=== PATIENT | female | born 1970 | race Caucasian/White ===

== ENCOUNTER 2017-07-18 20:06 | Emergency (ER) | payer MEDICAID ==
[2017-07-18] MEDS ORDERED: Bupivacaine 0.5% 30 ML SDV INFILT ONE (20:07)
[2017-07-18] MEDS ORDERED: Cephalexin 500 MG Cap PO ONE (20:44)
[2017-07-18] MEDS ORDERED: Diphtheria,Pertussis(Acell),Tetanus Vaccine 0.5 ML SDV IM ONE (20:45)
--- NOTE | 2017-07-18 20:49 | EDM.PDOC ---
ED HPI GENERAL MEDICAL PROBLEM - General Chief Complaint: General Stated Complaint: INFECTED FINGER RT HAND Time Seen by Provider: 07/18/17 20:06 Source of Information: Reports: Patient History Limitations: Reports: No Limitations - History of Present Illness INITIAL COMMENTS - FREE TEXT/NARRATIVE: 46 y.o.w.jeffery came to the ed with her mom due to swelling and pain at her r 5th finger for 4 days, getting worse. Pt denied trauma, no f/c/n/v or any other acute medical issues. Pt has LROM of left finger due to swelling and pain. BP 101/69 temp 36.4 pulse 72 RR 18 Pulse ox 99% on RA Onset Date: 07/14/17 Onset Time: 08:00 Duration: Getting Worse Location: Reports: Upper Extremity, Right Quality: Reports: Ache, Dull, Pressure, Throbbing Severity: Moderate Improves with: Reports: Rest Worsens with: Reports: Movement Context: Reports: Other (paronychia) Associated Symptoms: Reports: No Other Symptoms - Related Data Allergies Allergy/AdvReac Type Severity Reaction Status Date / Time Sulfa (Sulfonamide Allergy Rash Verified 07/18/17 20:18 Antibiotics) Home Meds: Home Meds Cephalexin [Keflex] 500 mg PO Q6HR #40 cap 07/18/17 [Rx] Ibuprofen 2 tab PO Q4H PRN 07/18/17 [History] Past Medical History - Past Health History Medical/Surgical History: Denies Medical/Surgical History Social & Family History - Tobacco Use Smoking Status *Q: Current Every Day Smoker Years of Tobacco use: 20 - Recreational Drug Use Recreational Drug Use: No ED ROS GENERAL - Review of Systems Review Of Systems: See Below Constitutional: Reports: No Symptoms HEENT: Reports: No Symptoms Respiratory: Reports: No Symptoms Cardiovascular: Reports: No Symptoms Endocrine: Reports: No Symptoms GI/Abdominal: Reports: No Symptoms : Reports: No Symptoms Musculoskeletal: Reports: No Symptoms Skin: Reports: Rash, Erythema (right 5th finger) Neurological: Reports: No Symptoms Psychiatric: Reports: No Symptoms Hematologic/Lymphatic: Reports: No Symptoms Immunologic: Reports: No Symptoms ED EXAM, GENERAL - Physical Exam Exam: See Below Exam Limited By: No Limitations General Appearance: Alert, WD/WN, Mild Distress Eye Exam: Bilateral Eye: Normal Inspection Ears: Normal External Exam Ear Exam: Bilateral Ear: Auricle Normal Nose: Normal Inspection, Normal Mucosa Throat/Mouth: Normal Inspection, Normal Lips Head: Atraumatic, Normocephalic Neck: Normal Inspection, Supple, Non-Tender Respiratory/Chest: No Respiratory Distress, Lungs Clear, Normal Breath Sounds Cardiovascular: Normal Peripheral Pulses, Regular Rate, Rhythm, No Edema, No Gallop Peripheral Pulses: 1+: Radial (R) GI/Abdominal: Normal Bowel Sounds (Female) Exam: Deferred Rectal (Female) Exam: Deferred Back Exam: Normal Inspection, Full Range of Motion Extremities: Limited Range of Motion (right 5th finger due to sweling) Neurological: Alert, Oriented, CN II-XII Intact, Normal Cognition, Normal Gait Psychiatric: Normal Affect, Normal Mood Skin Exam: Erythema (paronychia r 5th finger) Lymphatic: No Adenopathy ED GENERAL MEDICAL PROCEDURES - Additional/Other Procedure(s) Other (Free Text) Procedure(s): Procedure: 1) Digital block r 5th finger using 3 cc of Marcain 0.5% 2) elevated the skin over the nail and pus extruded 3) Gram stain and Cx with sensitivity were ordered. 4) Keflex 500 mg po was given (pt refused I.M) 5) TD immunization was applied. No complication Course - Vital Signs Text/Narrative:: 46 y.o.w.f came to the ed with her mom due to swelling and pain at her r 5th finger for 4 days, getting worse. Pt denied trauma, no f/c/n/v or any other acute medical issues. Pt has LROM of left finger due to swelling and pain. BP 101/69 temp 36.4 pulse 72 RR 18 Pulse ox 99% on RA PE: Paronychia R little finger Procedure: Please see note above Labs: Gram stain/Cx results are pending Impression: Paronychia r 5th finger Tx:Drainage, Abx Reexam: Pain ands swelling improved Plan: D/C with instructions Last Recorded V/S: Last Vital Signs Temp 36.5 C 07/18/17 20:15 Pulse 74 07/18/17 20:15 Resp 16 07/18/17 20:15 BP 101/69 07/18/17 20:15 Pulse Ox 99 07/18/17 20:15 - Orders/Labs/Meds Meds: Medications Discontinued Medications Generic Name Dose Route Start Last Admin Trade Name Freq PRN Reason Stop Dose Admin Bupivacaine HCl 3 ml 07/18/17 20:07 Marcaine 0.5% INFILT 07/18/17 20:08 .STK-MED ONE Cephalexin 500 mg 07/18/17 20:44 07/18/17 20:56 Keflex PO 07/18/17 20:45 500 mg ONETIME ONE Administration Diphtheria/Tetanus/Acell Pertussis 0.5 ml 07/18/17 20:45 07/18/17 20:56 Adacel IM 07/18/17 20:46 0.5 ml .ONCE ONE Administration Departure - Departure Time of Disposition: 23:00 Disposition: Home, Self-Care 01 Condition: Good Clinical Impression: Paronychia of finger of right hand - Discharge Information Prescriptions: Cephalexin [Keflex] 500 mg PO Q6HR #40 cap Referrals: Martínez Polanco MD [Primary Care Provider] - Forms: ED Department Discharge Additional Instructions: Please massage the right 5th finger towards the nail to extrude the pus, please take keflex as recommended, please f/u with your PMD, please come back to the ED if acutely worse.
== END 2017-07-18 21:45 | disposition home or self-care (01) ==
LOC: FB.ED 20:06
DX: L03.011 Cellulitis of right finger (principal); Z88.2 Allergy status to sulfonamides; F17.210 Nicotine dependence, cigarettes, uncomplicated; Z23 Encounter for immunization
CPT/HCPCS: 64450; 87070; 87077; 87186; 87205; 90471; 90715; 99283; A9270; 99217; 99224; 99225

== ENCOUNTER 2018-11-09 17:19 | Observation (INO) | payer MEDICAID ==
[2018-11-09] MEDS ORDERED: Sodium Chloride 0.9% 10 ML Syringe FLUSH PRN (17:56)
--- NOTE | 2018-11-09 18:12 | PCM.HP ---
H&P History of Present Illness - General Date of Service: 11/09/18 Admit Problem/Dx: Admission Diagnosis/Problem Admission Diagnosis/Problem Abdominal pain - History of Present Illness Initial Comments - Free Text/Narative: Clary Rodriguez is a 48 years old female with PMHx of Asthma who presents to hospital as direct admission from the clinic. Patient reports not feeling well for the last week with nausea. Today she has worsening abdominal pain, it's more generalized lower abdomen, constant, cramps like. Nothing makes it better or worse. Associated with fever, nausea and vomiting. She had BM this morning. She denies diarrhea or constipation. She denies dysuria, frequency or blood in her urine. She has history of Hysterectomy with Right oophorectomy 10 years ago. History of in 1995. She is a smoker. Drink alcohol occasionally. No illicit drugs use. VS in clinic were wnl. Labs done in clinic today showed WBC 10.8, Hgb 14.9, Platelets of 415. UA Positive for small amount of blood. 3-5 RBC. Trace protein , negative leukocytes esterase, and negative for bacteria. - Related Data Allergies/Adverse Reactions: Allergies Allergy/AdvReac Type Severity Reaction Status Date / Time Sulfa (Sulfonamide Allergy Rash Verified 11/09/18 17:56 Antibiotics) Home Medications: Home Meds Ibuprofen 400 mg PO Q4H PRN 07/18/17 [History] Albuterol [Ventolin HFA] 2 inh INH Q4H PRN 11/09/18 [History] Fluticasone Propionate [Flovent HFA 110 MCG] 2 inh INH Q4H PRN 11/09/18 [History ] Montelukast [Singulair] 10 mg PO BEDTIME 11/09/18 [History] Past Medical History - Past Health History Medical/Surgical History: Denies Medical/Surgical History Respiratory History: Reports: Asthma Musculoskeletal History: Reports: Back Pain, Chronic, Fibromyalgia, Other (See Below) Other Musculoskeletal History: States she has arthritis in her back, as well as scoliosis. - Past Surgical History HEENT Surgical History: Reports: Tonsillectomy Female Surgical History: Reports: Section, Hysterectomy H&P Review of Systems - Review of Systems: Review Of Systems: See Below General: Reports: Fever, Chills, Malaise, Fatigue HEENT: Reports: No Symptoms Pulmonary: Reports: No Symptoms Cardiovascular: Reports: No Symptoms Gastrointestinal: Reports: Abdominal Pain, Decreased Appetite, Nausea, Vomiting Genitourinary: Reports: No Symptoms Musculoskeletal: Reports: Back Pain Skin: Reports: No Symptoms Psychiatric: Reports: No Symptoms Neurological: Reports: Headache Hematologic/Lymphatic: Reports: No Symptoms Exam - Exam Exam: See Below - Exam General: Alert, Oriented HEENT: PERRLA, Conjunctiva Clear Neck: Supple Lungs: Clear to Auscultation, Normal Respiratory Effort Cardiovascular: Regular Rate, Regular Rhythm GI/Abdominal Exam: Normal Bowel Sounds, Soft, Tender, Mass Back Exam: Normal Inspection Extremities: Normal Inspection, Normal Range of Motion, Non-Tender, No Pedal Edema Skin: Warm Neuro Extensive - Mental Status: Alert, Oriented x3 Psychiatric: Alert, Normal Affect - Problem List (1) Abdominal pain SNOMED Code(s): 73154731 ICD Code: R10.9 - UNSPECIFIED ABDOMINAL PAIN Status: Acute Current Visit : Yes (2) Acute asthma SNOMED Code(s): 492116171 ICD Code: J45.909 - UNSPECIFIED ASTHMA, UNCOMPLICATED Status: Acute Current Visit: No (3) Dehydration SNOMED Code(s): 98304678 ICD Code: E86.0 - DEHYDRATION Status: Acute Current Visit: Yes Problem List Initiated/Reviewed/Updated: Yes Orders Last 24hrs: Active Orders 24 hr Category Date Time Status Patient Status [ADT] Routine ADT 11/09/18 17:56 Active Oxygen Therapy [RC] PRN Care 11/09/18 17:56 Active Up ad Apryl [RC] ASDIRECTED Care 11/09/18 17:56 Active VTE/DVT Education [RC] Per Unit Routine Care 11/09/18 17:56 Active Vital Signs [RC] Q4H Care 11/09/18 17:56 Active Nothing per Oral Now Diet [DIET] Diet 11/09/18 Dinner Active Abdomen Pelvis wo Cont [CT] Routine Exams 11/09/18 17:59 Ordered COMPREHENSIVE METABOLIC PN,CMP [CHEM] Routine Lab 11/09/18 17:56 Ordered Enoxaparin [Lovenox] Med 11/09/18 18:00 Ordered 40 mg SUBCUT Q24H Sodium Chloride 0.9% [Normal Saline] 1,000 ml Med 11/09/18 18:00 Ordered IV ASDIRECTED Sodium Chloride 0.9% [Saline Flush] Med 11/09/18 17:56 Ordered 10 ml FLUSH ASDIRECTED PRN Peripheral IV Insertion Adult [OM.PC] Routine Oth 11/09/18 17:56 Ordered Resuscitation Status Routine Resus Stat 11/09/18 17:56 Ordered Medication Orders Enoxaparin Sodium (Lovenox) 40 mg SUBCUT Q24H [facility] Sodium Chloride (Normal Saline) 1,000 mls @ 125 mls/hr IV ASDIRECTED [facility] Sodium Chloride (Saline Flush) 10 ml FLUSH ASDIRECTED PRN PRN Reason: Keep Vein Open Assessment/Plan Comment:: - Abdominal pain - Reviewed CBC and UA done earlier today in the clinic - Will do CMP - Will do abdominal CT scan - Start IV fluid NS - Pain management with prn pain medication - Antiemetic prn - Monitor vital sign
[2018-11-09] MEDS: Sodium Chloride 0.9% 1,000 ML IV SCH (18:31)
[2018-11-09] MEDS ORDERED: Iopamidol 755 Mg/ML 75 ML Bottle IV ONE (18:48)
[2018-11-09] MEDS ORDERED: Pneumococcal Polyvalent-23 Vaccine 0.5 ML SDV IM ONE (20:05)
[2018-11-09] MEDS ORDERED: Enoxaparin 40 MG/0.4 ML Syringe SUBCUT SCH (21:00)
[2018-11-09] MEDS ORDERED: Ondansetron 4 MG/2 ML SDV IVPUSH PRN (21:04)
[2018-11-09] MEDS ORDERED: Ondansetron 4 MG Tab.DIS PO PRN (21:06)
[2018-11-09] MEDS: Acetaminophen/HYDROcodone 325-5 MG Tab PO PRN (21:36)
[2018-11-10] MEDS: Sodium Chloride 0.9% 1,000 ML IV SCH (02:06)
--- NOTE | 2018-11-10 07:50 | PCM.PN ---
<Rina Ruvalcaba - Last Filed: 11/10/18 07:45> - General Info Date of Service: 11/10/18 Admission Dx/Problem (Free Text): Patient reports feeling better today. Her abdominal pain is less. no nausea or vomiting since admission. she tolerated diet. No fever. no CP. no SOB. Patient denies dysuria. - Review of Systems General: Reports: No Symptoms HEENT: Reports: No Symptoms Pulmonary: Reports: No Symptoms Cardiovascular: Reports: No Symptoms Gastrointestinal: Reports: Abdominal Pain Genitourinary: Reports: No Symptoms Musculoskeletal: Reports: No Symptoms Skin: Reports: No Symptoms Neurological: Reports: No Symptoms Psychiatric: Reports: No Symptoms - Patient Data Vitals - Most Recent: Last Vital Signs Temp 36.7 C 11/10/18 06:00 Pulse 61 11/10/18 06:00 Resp 18 11/10/18 06:00 BP 105/72 11/10/18 06:00 Pulse Ox 96 11/10/18 06:00 Weight - Most Recent: 132 lb I&O - Last 24 Hours: Intake & Output 11/09/18 11/10/18 11/10/18 22:59 06:59 14:59 Intake Total 1037 1107 Balance 1037 1107 Lab Results Last 24 Hours: Laboratory Results - last 24 hr 11/09/18 11/10/18 Range/Units 18:30 06:15 WBC 6.1 (4.5-12.0) X10-3/uL RBC 4.12 (3.23-5.20) x10(6)uL Hgb 12.7 (11.5-15.5) g/dL Hct 37.6 (30.0-51.3) % MCV 91.4 (80-96) fL MCH 31.0 (27.7-33.6) pg MCHC 33.9 (32.2-35.4) g/dL RDW 11.9 (11.5-15.5) % Plt Count 326 (125-369) X10(3)uL MPV 8.0 (7.4-10.4) fL Neut % (Auto) 46.6 (46-82) % Lymph % (Auto) 35.1 (13-37) % [place] % (Auto) 8.8 (4-12) % Eos % (Auto) 9 H (1.0-5.0) % Baso % (Auto) 1 (0-2) % Neut # (Auto) 3.0 (1.6-8.3) # Lymph # (Auto) 2.1 (0.6-5.0) # [place] # (Auto) 0.5 (0.0-1.3) # Eos # (Auto) 0.5 (0.0-0.8) # Baso # (Auto) 0.0 (0.0-0.2) # Sodium 138 (135-145) mmol/L Potassium 3.4 L (3.5-5.3) mmol/L Chloride 100 (100-110) mmol/L Carbon Dioxide 29 (21-32) mmol/L BUN 19 H (7-18) mg/dL Creatinine 0.8 (0.55-1.02) mg/dL Est Cr Clr Drug Dosing TNP Estimated GFR (MDRD) > 60 (>60) BUN/Creatinine Ratio 23.8 H (9-20) Glucose 111 (80-116) mg/dL Calcium 8.0 L (8.6-10.2) mg/dL Total Bilirubin 0.4 (0.1-1.3) mg/dL AST 19 (5-25) IU/L ALT 24 (12-36) U/L Alkaline Phosphatase 111 (56-112) IU/L Total Protein 7.1 (6.0-8.0) g/dL Albumin 3.1 L (3.5-5.2) g/dL Globulin 4.0 g/dL Albumin/Globulin Ratio 0.8 Med Orders - Current: Current Medications Hydrocodone Bitart/Acetaminophen ([place] 325-5 Mg) 1 tab PO Q4H PRN PRN Reason: Pain Last Admin: 11/09/18 21:36 Dose: 1 tab Enoxaparin Sodium (Lovenox) 40 mg SUBCUT Q24H [facility] Last Admin: 11/09/18 21:38 Dose: 40 mg Sodium Chloride (Normal Saline) 1,000 mls @ 125 mls/hr IV ASDIRECTED [facility] Last Admin: 11/10/18 02:06 Dose: 125 mls/hr Ondansetron HCl (Zofran) 4 mg IVPUSH Q4H PRN PRN Reason: Nausea/Vomiting Ondansetron HCl (Zofran Odt) 4 mg PO Q4H PRN PRN Reason: Nausea/Vomiting Sodium Chloride (Saline Flush) 10 ml FLUSH ASDIRECTED PRN PRN Reason: Keep Vein Open Last Admin: 11/09/18 18:15 Dose: 10 ml Discontinued Medications Iopamidol (Isovue-370 (76%)) 75 ml IV ASDIRECTED ONE Stop: 11/09/18 18:49 Last Admin: 11/09/18 19:16 Dose: 69 ml Pneumococcal Polyvalent Vaccine (Pneumovax 23) 0.5 ml IM .ONCE ONE Stop: 11/09/18 20:06 - Exam General: Alert, Oriented, Cooperative HEENT: Pupils Equal Neck: Supple Lungs: Clear to Auscultation, Normal Respiratory Effort Cardiovascular: Regular Rate, Regular Rhythm GI/Abdominal Exam: Normal Bowel Sounds, Tender (Female) Exam: Deferred Back Exam: Normal Inspection, Full Range of Motion Extremities: Normal Inspection, Normal Range of Motion, Non-Tender, No Pedal Edema Skin: Warm Psy/Mental Status: Alert, Normal Affect - Problem List & Annotations (1) Abdominal pain SNOMED Code(s): 35146617 Code(s): R10.9 - UNSPECIFIED ABDOMINAL PAIN Status: Acute (2) Acute asthma SNOMED Code(s): 191653867 Code(s): J45.909 - UNSPECIFIED ASTHMA, UNCOMPLICATED Status: Acute (3) Dehydration SNOMED Code(s): 55847602 Code(s): E86.0 - DEHYDRATION Status: Acute - Problem List Review Problem List Initiated/Reviewed/Updated: Yes - Plan Plan:: -CT scan showed normal appendix. Patient's labs within normal. -Will discharge patient home. <Giovani Long - Last Filed: 11/11/18 15:15> - Patient Data Vitals - Most Recent: Last Vital Signs Temp 98.2 F 11/10/18 10:00 Pulse 63 11/10/18 10:00 Resp 18 11/10/18 10:00 BP 109/74 11/10/18 10:00 Pulse Ox 95 11/10/18 10:00 Med Orders - Current: Current Medications Discontinued Medications Hydrocodone Bitart/Acetaminophen ([place] 325-5 Mg) 1 tab PO Q4H PRN PRN Reason: Pain Last Admin: 11/10/18 09:52 Dose: 1 tab Enoxaparin Sodium (Lovenox) 40 mg SUBCUT Q24H [facility] Last Admin: 11/09/18 21:38 Dose: 40 mg Sodium Chloride (Normal Saline) 1,000 mls @ 125 mls/hr IV ASDIRECTED [facility] Last Admin: 11/10/18 02:06 Dose: 125 mls/hr Iopamidol (Isovue-370 (76%)) 75 ml IV ASDIRECTED ONE Stop: 11/09/18 18:49 Last Admin: 11/09/18 19:16 Dose: 69 ml Ondansetron HCl (Zofran) 4 mg IVPUSH Q4H PRN PRN Reason: Nausea/Vomiting Ondansetron HCl (Zofran Odt) 4 mg PO Q4H PRN PRN Reason: Nausea/Vomiting Pneumococcal Polyvalent Vaccine (Pneumovax 23) 0.5 ml IM .ONCE ONE Stop: 11/09/18 20:06 Last Admin: 11/10/18 08:14 Dose: 0.5 ml Sodium Chloride (Saline Flush) 10 ml FLUSH ASDIRECTED PRN PRN Reason: Keep Vein Open Last Admin: 11/09/18 18:15 Dose: 10 ml - Plan Plan:: I attest that seeing this patient and examined him. Agree with the resident.
--- NOTE | 2018-11-10 07:56 | PCM.DCSUM1 ---
<Rina Ruvalcaba - Last Filed: 11/10/18 07:51> Discharge Summary - Hospital Course Free Text/Narrative:: Clary Rodriguez is a 48 years old female with PMHx of Asthma who presents to hospital as direct admission from the clinic. due to acute abdominal pain with nausea and vomiting. Associated with fever. She denies diarrhea or constipation. She denies dysuria, frequency or blood in her urine. She has history of Hysterectomy with Right oophorectomy 10 years ago. History of in 1995. She is a smoker. Drink alcohol occasionally. No illicit drugs use. During this hospitalization, patient received IV fluid. Abdominal CT scan was negative. CBC, CMP and UA were non significant. Patient symptoms improved with IV fluid. Patient discharged home in medical stable condition. follow up with PCP. Diagnosis: Stroke: No - Discharge Data Discharge Date: 11/10/18 Discharge Disposition: Home, Self-Care 01 Condition: Good - Discharge Diagnosis/Problem(s) (1) Abdominal pain SNOMED Code(s): 70565386 ICD Code: R10.9 - UNSPECIFIED ABDOMINAL PAIN Status: Acute Qualifiers: Abdominal location: generalized Qualified Code(s): R10.84 - Generalized abdominal pain (2) Acute asthma SNOMED Code(s): 088793145 ICD Code: J45.909 - UNSPECIFIED ASTHMA, UNCOMPLICATED Status: Acute (3) Dehydration SNOMED Code(s): 90057781 ICD Code: E86.0 - DEHYDRATION Status: Acute - Discharge Plan Home Medications: Home Meds Ibuprofen 400 mg PO Q4H PRN 07/18/17 [History] Albuterol [Ventolin HFA] 2 inh INH Q4H PRN 11/09/18 [History] Fluticasone Propionate [Flovent HFA 110 MCG] 2 inh INH Q4H PRN 11/09/18 [History ] Montelukast [Singulair] 10 mg PO BEDTIME 11/09/18 [History] Patient Handouts: Abdominal Pain, Adult, [id number], Fall Prevention in Hospitals, Adult, Venous Thromboembolism Prevention - Discharge Summary/Plan Comment DC Time >30 min.: Yes - General Info Date of Service: 11/10/18 - Review of Systems General: Reports: No Symptoms HEENT: Reports: No Symptoms Pulmonary: Reports: No Symptoms Cardiovascular: Reports: No Symptoms Gastrointestinal: Reports: Abdominal Pain Genitourinary: Reports: No Symptoms Musculoskeletal: Reports: No Symptoms Neurological: Reports: No Symptoms Psychiatric: Reports: No Symptoms - Patient Data Vitals - Most Recent: Last Vital Signs Temp 36.7 C 11/10/18 06:00 Pulse 61 11/10/18 06:00 Resp 18 11/10/18 06:00 BP 105/72 11/10/18 06:00 Pulse Ox 96 11/10/18 06:00 Weight - Most Recent: 132 lb I&O - Last 24 hours: Intake & Output 11/09/18 11/10/18 11/10/18 22:59 06:59 14:59 Intake Total 1037 1107 Balance 1037 1107 Lab Results - Last 24 hrs: Laboratory Results - last 24 hr 11/09/18 11/10/18 Range/Units 18:30 06:15 WBC 6.1 (4.5-12.0) X10-3/uL RBC 4.12 (3.23-5.20) x10(6)uL Hgb 12.7 (11.5-15.5) g/dL Hct 37.6 (30.0-51.3) % MCV 91.4 (80-96) fL MCH 31.0 (27.7-33.6) pg MCHC 33.9 (32.2-35.4) g/dL RDW 11.9 (11.5-15.5) % Plt Count 326 (125-369) X10(3)uL MPV 8.0 (7.4-10.4) fL Neut % (Auto) 46.6 (46-82) % Lymph % (Auto) 35.1 (13-37) % [place] % (Auto) 8.8 (4-12) % Eos % (Auto) 9 H (1.0-5.0) % Baso % (Auto) 1 (0-2) % Neut # (Auto) 3.0 (1.6-8.3) # Lymph # (Auto) 2.1 (0.6-5.0) # [place] # (Auto) 0.5 (0.0-1.3) # Eos # (Auto) 0.5 (0.0-0.8) # Baso # (Auto) 0.0 (0.0-0.2) # Sodium 138 (135-145) mmol/L Potassium 3.4 L (3.5-5.3) mmol/L Chloride 100 (100-110) mmol/L Carbon Dioxide 29 (21-32) mmol/L BUN 19 H (7-18) mg/dL Creatinine 0.8 (0.55-1.02) mg/dL Est Cr Clr Drug Dosing TNP Estimated GFR (MDRD) > 60 (>60) BUN/Creatinine Ratio 23.8 H (9-20) Glucose 111 (80-116) mg/dL Calcium 8.0 L (8.6-10.2) mg/dL Total Bilirubin 0.4 (0.1-1.3) mg/dL AST 19 (5-25) IU/L ALT 24 (12-36) U/L Alkaline Phosphatase 111 (56-112) IU/L Total Protein 7.1 (6.0-8.0) g/dL Albumin 3.1 L (3.5-5.2) g/dL Globulin 4.0 g/dL Albumin/Globulin Ratio 0.8 Med Orders - Current: Current Medications Hydrocodone Bitart/Acetaminophen ([place] 325-5 Mg) 1 tab PO Q4H PRN PRN Reason: Pain Last Admin: 11/09/18 21:36 Dose: 1 tab Enoxaparin Sodium (Lovenox) 40 mg SUBCUT Q24H [facility] Last Admin: 11/09/18 21:38 Dose: 40 mg Sodium Chloride (Normal Saline) 1,000 mls @ 125 mls/hr IV ASDIRECTED [facility] Last Admin: 11/10/18 02:06 Dose: 125 mls/hr Ondansetron HCl (Zofran) 4 mg IVPUSH Q4H PRN PRN Reason: Nausea/Vomiting Ondansetron HCl (Zofran Odt) 4 mg PO Q4H PRN PRN Reason: Nausea/Vomiting Sodium Chloride (Saline Flush) 10 ml FLUSH ASDIRECTED PRN PRN Reason: Keep Vein Open Last Admin: 11/09/18 18:15 Dose: 10 ml Discontinued Medications Iopamidol (Isovue-370 (76%)) 75 ml IV ASDIRECTED ONE Stop: 11/09/18 18:49 Last Admin: 11/09/18 19:16 Dose: 69 ml Pneumococcal Polyvalent Vaccine (Pneumovax 23) 0.5 ml IM .ONCE ONE Stop: 11/09/18 20:06 - Exam General: Reports: Alert, Oriented HEENT: Reports: Pupils Equal, Pupils Reactive Neck: Reports: Supple Lungs: Reports: Clear to Auscultation, Normal Respiratory Effort Cardiovascular: Reports: Regular Rate, Regular Rhythm GI/Abdominal Exam: Normal Bowel Sounds, Soft, Tender Back Exam: Reports: Normal Inspection, Full Range of Motion Extremities: Normal Inspection, Normal Range of Motion, Non-Tender, No Pedal Edema Skin: Reports: Warm Psy/Mental Status: Reports: Alert, Normal Affect, Normal Mood <RefugioJannyGiovani - Last Filed: 11/11/18 15:16> Discharge Summary - Discharge Summary/Plan Comment Discharge Summary/Plan Comment: I attest that I have seen this patient and agree with the assessment. I've examined this patient also. - Patient Data Vitals - Most Recent: Last Vital Signs Temp 98.2 F 11/10/18 10:00 Pulse 63 11/10/18 10:00 Resp 18 11/10/18 10:00 BP 109/74 11/10/18 10:00 Pulse Ox 95 11/10/18 10:00 Med Orders - Current: Current Medications Discontinued Medications Hydrocodone Bitart/Acetaminophen ([place] 325-5 Mg) 1 tab PO Q4H PRN PRN Reason: Pain Last Admin: 11/10/18 09:52 Dose: 1 tab Enoxaparin Sodium (Lovenox) 40 mg SUBCUT Q24H [facility] Last Admin: 11/09/18 21:38 Dose: 40 mg Sodium Chloride (Normal Saline) 1,000 mls @ 125 mls/hr IV ASDIRECTED [facility] Last Admin: 11/10/18 02:06 Dose: 125 mls/hr Iopamidol (Isovue-370 (76%)) 75 ml IV ASDIRECTED ONE Stop: 11/09/18 18:49 Last Admin: 11/09/18 19:16 Dose: 69 ml Ondansetron HCl (Zofran) 4 mg IVPUSH Q4H PRN PRN Reason: Nausea/Vomiting Ondansetron HCl (Zofran Odt) 4 mg PO Q4H PRN PRN Reason: Nausea/Vomiting Pneumococcal Polyvalent Vaccine (Pneumovax 23) 0.5 ml IM .ONCE ONE Stop: 11/09/18 20:06 Last Admin: 11/10/18 08:14 Dose: 0.5 ml Sodium Chloride (Saline Flush) 10 ml FLUSH ASDIRECTED PRN PRN Reason: Keep Vein Open Last Admin: 11/09/18 18:15 Dose: 10 ml
[2018-11-10] MEDS: Acetaminophen/HYDROcodone 325-5 MG Tab PO PRN (09:52)
== END 2018-11-10 14:55 | disposition home or self-care (01) ==
LOC: FB.MS 17:39
PROVIDERS: ADMIT Family Medicine; ATTEND Family Medicine
DX: R10.84 Generalized abdominal pain (principal); E86.0 Dehydration; F17.200 Nicotine dependence, unspecified, uncomplicated; J45.909 Unspecified asthma, uncomplicated; Z88.2 Allergy status to sulfonamides; Z23 Encounter for immunization; Z79.899 Other long term (current) drug therapy
CPT/HCPCS: 36415; 74177; 80053; 85025; 90732; 96360; 96361; 96372; A9270; G0009; G0378; G0379; J1650; J7030; Q9967